=== PATIENT | male | born 1945 | race Caucasian/White ===

== ENCOUNTER 2016-04-29 14:35 | Emergency (ER) | payer MEDICARE, BC ==
--- NOTE | 2016-04-29 14:51 | ERNOTE ---
Chest Pain/Cardiac HPI Date of Service: 04/29/16 Chief Complaint: Chest Pain Time Seen by Provider: 04/29/16 14:48 Source: patient, police Exam Limitations: no limitations Immunizations: IMMUNIZATION HX Immunizations Up to Date Yes History of Influenza Vaccine No Hx Pneumococcal Vaccination Yes Allergies/Adverse Reactions: Allergies hydrochlorothiazide Allergy (Verified 04/29/16 15:55) Penicillins Allergy (Verified 04/29/16 14:44) Home Medications: HOME MEDICATIONS Lisinopril [Zestril] 10 mg PO DAILY 09/10/15 [Last Taken Unknown] Narrative: patient presented to ED with c/o chest pain. Patient states that he has had chest pain on and off for the last 2 weeks. Patient states that he has noticed the pain/pressure has increased with walking and carrying in groceries. patient states he is pain free at this time. Chest pain had been centered in his chest and describes it as a dull ache. Timing: resolved prior to arrival Severity/Quality: moderate, aching, dull Location: central Chest Pain Radiation: no radiation Activities at Onset: activity - carried groceries today and walking outside noticed a dull ach in center of chest. Modifying Factors - Improves: Present: rest Modifying Factors - Worsens: Present: exercise Nitro Today/Relief: no nitro taken today Aspirin Treatment Today: no aspirin today Associated Symptoms: Present: denies symptoms. 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 Denies: heart attack, cardiac cath, echocardiogram Review of Systems - Review of Systems Constitutional: Present: no symptoms reported - seems anxious EYE: Present: no symptoms reported ENT: Present: no symptoms reported Respiratory: Present: no symptoms reported Cardiology: Present: See HPI, chest pain. Absent: palpitations Gastrointestinal/Abdominal: Present: no symptoms reported. Absent: nausea, vomiting Genitourinary: Present: no symptoms reported Musculoskeletal: Present: no symptoms reported. Absent: muscle pain, muscle stiffness, joint pain Skin: Present: no symptoms reported Neurological: Present: no symptoms reported Endocrine: Present: no symptoms reported Hematologic/Lymphatic: Present: no symptoms reported Psych: Present: no symptoms reported - Patient's Past Medical History Patient History - Medical: No pertinent hx Patient History - Cardiac/Respiratory: Other Additional Info: 2008 dx of possible pericardial cyst. Patient History - Cancer: No Hx of Cancer Patient History - Surgical Procedures: Appendectomy, Other Patient History - Other: None - Social History Living Situations: home Psych History: No pertinent hx Alcohol Use: none Drug Use: none - Immunizations Immunizations Up to Date: Yes Hx Pneumococcal Vaccination: Yes History of Influenza Vaccine: No Physical Exam - Physical Exam Narrative: patient c/o chest pain. described as a dull ach. it does get worse with exercise , walking and light lifting. General Appearance: Present: wd/wn Eye Exam: Normal inspection: bilateral Ears, Nose, Throat: Present: normal ENT inspection Neck: Present: normal inspection Respiratory: Present: no respiratory distress Cardiovascular/Chest: Present: regular rate, rhythm, no murmur, normal peripheral pulses. Absent: tachycardia, bradycardia, irregularly irregular, chest tenderness Peripheral Pulses: N=norm/S=strong/W=weak/B=bound/A=absent: Radial (R): Normal, Radial (L): Normal, Dorsalis-pedis (R): Normal, Dorsalis-pedis (L): Normal Gastrointestinal/Abdominal: Present: normal bowel sounds Back Exam: Present: normal inspection Extremity Exam: Present: normal inspection. Absent: pedal edema Neurological Exam: Present: alert, oriented - anxious. Absent: normal mood/ affect Skin Exam: Present: normal color Lymphatic Exam: Present: no adenopathy ED Progress - Results and Orders Patient's Lab Results:: I have reviewed the patient's lab results. Results and Orders: elevated troponin at 1.25 - Vital Signs Patient's Vital Signs:: I have reviewed the patient's vital signs. Vital Signs: Vital Signs 04/29/16 04/29/16 14:40 14:47 Temperature 36.5 C Pulse Rate 95 90 Respiratory 14 Rate Blood Pressure 184/114 O2 Sat by Pulse 100 Oximetry - EKG EKG: NSR EKG read: Reviewed by me EKG Comments: dr Garcia reviewed and agreed - X-Ray X-Ray #1 X-Ray: chest Interpretation: Reviewed by me X-ray Comments: FINDINGS: Chest PA Lateral * Normal lung volumes. No new consolidation or mass. At the left cardiophrenic angle, there is a ovoid 6 x 3 cm density, with obscuration of the left cardiac border and the cardiac apex. Similar findings seen previously, and the chest CT from 2008 demonstrates a lobulated fluid density structure, which appears to insinuate into the major fissure. This most likely represents a pericardial cyst or loculated fluid within the major fissure, and given long-term radiographic stability most likely of low clinical significance. Densely calcified right midlung field nodule likely benign. No pneumothorax or pleural fluid collections. Cardiac silhouette otherwise unremarkable. Vascular calcifications projecting over the aorta, stable. Trachea is in normal position. Bones show degenerative changes of the spine. IMPRESSION: 1. No focal acute cardiopulmonary finding. 2. Radiographically stable left cardiophrenic angle density as above. 3. Additional comments as above. Electronically signed by Александр Nash M.D.. - Progress/Reassessment Chief Complaint: Chest Pain Progress:: Unchanged Progress Note-Subjective: 04/29/16 16:08 continues to have pain at a 1. states he can just feel it. describes it as a dull ache. Plan - Plan Plan: after review of lab results. patient is to be transferred [facility] as [facility] direct admit to cardiology. Patient to be taken by EMS. Accepting is Dr Pena. Departure - Departure Clinical Impression: NSTEMI (non-ST elevation myocardial infarction) Disposition: [facility] in [place] Condition: Serious
[2016-04-29] MEDS ORDERED: ASPIRIN 81 MG TAB.CHEW PO ONE (14:54)
[2016-04-29 15:01] LABS: Hematocrit 39.3 % (42.0-52.0); Hemoglobin 13.6 gm/dL (13.5-18.0); Mean Cell Volume 92.7 fl (78-100); Mean Corpuscular Hemoglobin 32.1 pg (27-31); Mean Corpuscular Hgb Conc 34.6 g/dl (32-36); Mean Platelet Volume 9.8 fl (6.0-9.5); Neutrophil # 2.9 K/mm3 (1.3-6.0); Neutrophil % 57.2 % (42-75.0); Platelet Count 207 K/mm3 (150-450); Red Blood Count 4.24 M/mm3 (4.7-6.0); Red Cell Distribution Width 12.7 % (11.5-14.0); White Blood Count 5.1 K/mm3 (4.0-10.5)
[2016-04-29] MEDS ORDERED: ASPIRIN 81 MG TAB.CHEW ONE (15:05)
[2016-04-29 15:14] LABS: Prothrombin Time (Patient) 10.3 Seconds (9.4-11.4)
[2016-04-29 15:19] LABS: Albumin * 3.8 gm/dl (3.4-5.0); Anion Gap 11.5 mmol/L (6.8-13.8); BUN/Creatinine Ratio 18.4 (9.0-21.6); Bilirubin, Total 0.8 mg/dL (0.0-1.1); Ca. Corrected For Albumin 8.4 mg/dL (8.4-10.2); Calcium * 8.6 mg/dL (7.9-10.9); Carbon Dioxide 28.7 mmol/L (24-32.6); INR 0.99 INR (0.90-1.10); Partial Thrombolplastin Time 26.4 Seconds (24-32); Potassium 4.2 mmol/L (3.4-4.6); Total Protein 7.4 gm/dL (6.2-8.2)
[2016-04-29 15:24] LABS: Troponin I 1.256 ng/ml (0.00-0.10)
[2016-04-29] MEDS ORDERED: HEPARIN SODIUM,PORCINE 5,000 UNITS/ML VIAL IV ONE (15:39)
[2016-04-29] MEDS ORDERED: HEPARIN SODIUM,PORCINE 5,000 UNITS/ML VIAL ONE (15:45)
[2016-04-29] MEDS ORDERED: HEPARIN SODIUM,PORCINE/D5W 25,000 UNITS/500 ML BAG IV ONE (15:45)
[2016-04-29] MEDS ORDERED: HEPARIN SODIUM,PORCINE/D5W 25,000 UNITS/500 ML BAG IV SCH (15:45)
[2016-04-29 15:52] VITALS: BP 174/108
[2016-04-29] MEDS ORDERED: NITROGLYCERIN IN 5 % DEXTROSE 50 MG/250 ML INFUS..BTL IV PRN (16:19)
--- OUTSIDE RECORDS SUMMARY | 2016-04-29 16:42 | XMS REPORT | Continuity of Care Document ---
:1945 Author Organization [facility] ([facility]) Address [address] [place] [address] Phone [phone] Care Team Providers Name Role Phone Candy Collier Primary Care Provider [phone] Source Comments This disclosure is being made pursuant to the Care Everywhere program, applicable federal and state laws, and may not contain all informaitonavailable regarding this patient.[facility] ([facility]) Active Allergies and Adverse Reactions Allergen Noted Date Severity Reactions Comments Alcohol 04/01/2011 Rash Oxycodone-Acetaminophen 04/17/2013 Arthralgia,Rash Penicillins 04/01/2011 OTHER Father had reaction to PCN; was told not to take Thiazides 04/01/2011 OTHER Kidney failure Current Medications Prescription Sig. Disp. Refills Start Date End Date Status CALCIUM CITRATE/VITAMIN Take 1 Tab by Suspended D3 (CALCIUM CITRATE + D mouth every 48 PO) hours. naproxen 500 mg tablet Take 500 mg by Suspended mouth 2 times daily with meals. acetaminophen 500 mg Take 500 mg by Suspended tablet mouth at bedtime as needed. Active Problems Problem Noted Date Wrist pain, left 11/21/2014 After care 04/24/2014 Trigger finger 05/21/2013 Aftercare 04/27/2013 Wrist pain 03/29/2013 Elbow pain 12/14/2012 Social History Tobacco Use Types Packs/Day Years Used Date Former Smoker Smokeless Tobacco: Never Used Tobacco Cessation:Counseling Given: No Comments: Alcohol Use Drinks/Week oz/Week Comments Yes 1 Glasses of wine 0.5 Last Filed Vital Signs Vital Sign Reading Time Taken Blood Pressure 165/91 03/22/2014 3:15 PM REGISTRATION COORDINATOR Pulse 88 03/22/2014 8:37 AM REGISTRATION COORDINATOR Temperature 36.4 C (97.5 F) 03/22/2014 3:15 PM REGISTRATION COORDINATOR Respiratory Rate 20 03/22/2014 3:01 PM REGISTRATION COORDINATOR Height 1.778 m (5' 10") 01/22/2014 8:47 AM REGISTRATION COORDINATOR Weight 79.8 kg (175 lb 14.8 oz) 03/22/2014 8:37 AM REGISTRATION COORDINATOR Body Mass Index 25.24 03/22/2014 8:37 AM REGISTRATION COORDINATOR Oxygen Saturation 97% 03/22/2014 3:30 PM REGISTRATION COORDINATOR Plan of Care Health Maintenance Due Date Last Done Comments Hepatitis B Vaccine (1 of 3 - Primary Series) 1945 Tdap Vaccine 05/09/1954 Lipid Disorder Screening 05/09/1961 Td Vaccine 05/09/1961 Colonoscopy 05/09/1993 Prostate Cancer Screening 05/09/1993 Zoster Vaccine 2003 Pneumococcal Vaccine (1 of 2 - PCV13) 05/09/2008 Influenza Vaccine: Seasonal (#1) 09/30/2015 Results from Last 3 Months Not on file
== END 2016-04-29 16:16 | disposition short-term general hospital (02) ==
LOC: ER 14:35
DX: I21.4 Non-ST elevation (NSTEMI) myocardial infarction (principal)